=== PATIENT | female | born 1960 | race Caucasian/White ===

== ENCOUNTER 2021-11-03 14:58 | Outpatient (CLI) | payer OTHER, SELFPAY ==
--- NOTE | 2021-11-03 15:05 | MM_ITS ---
WS: [id number] BILATERAL 3D TOMOSYNTHESIS DIGITAL SCREENING MAMMOGRAPHY WITH CAD CLINICAL INFORMATION: SCREENING HISTORY: Screening mammogram. No current complaints. COMPARISON: None. TECHNIQUE: Bilateral CC and MLO views. FINDINGS: The breasts are composed of heterogeneous fibroglandular density tissue, which can limit the detectio n of small underlying mass lesions. No suspicious mass, asymmetry, calcifications, or architectural d istortion. No evidence of malignancy. MM/[place] [id number] IMPRESSION: BI-RADS: 1-Negative FOLLOW UP: 1 Year Follow-up Recommend return to annual screening mammography.
== END 2021-11-03 14:59 | disposition home or self-care (01) ==
PROVIDERS: PCP Nurse Practitioner Family; Visit Provider Nurse Practitioner Family
DX: Z12.31 Encounter for screening mammogram for malignant neoplasm of breast (principal)
CPT/HCPCS: 77063; 77067

== ENCOUNTER 2021-11-10 13:35 | Outpatient (CLI) | payer OTHER, SELFPAY ==
--- NOTE | 2021-11-10 14:06 | PFTS_ITS ---
Date of Study:11/10/21 Date of Dictation: MECHANICS: Forced vital capacity (FVC) is normal. Forced expiratory volume in one second (FEV1) is reduced. FEV1/FVC is reduced. FLOW VOLUME LOOP: Reduced airflow at all lung volumes with significant scooping. LUNG VOLUMES: Not measured DIFFUSING CAPACITY FOR CARBON MONOXIDE: Not measured. INTERPRETATION: The postbronchodilator spirometry is consistent with moderate airflow obstruction. There is no significant postbronchodilator response. MTDD
== END 2021-11-10 13:36 | disposition home or self-care (01) ==
LOC: RT 13:35
PROVIDERS: PCP Nurse Practitioner Family; Visit Provider Nurse Practitioner Family
DX: F17.200 Nicotine dependence, unspecified, uncomplicated (principal); R06.2 Wheezing; R05.9 Cough, unspecified
CPT/HCPCS: 94060; J7611

== ENCOUNTER 2022-01-21 16:34 | Outpatient (CLI) | payer OTHER, SELFPAY ==
--- NOTE | 2022-01-21 17:01 | CT_ITS ---
WS: [id number] LDCT LUNG CANCER SCREENING HISTORY: HX OF TOBACCO USE TECHNIQUE: Axial imaging performed from the apices to 1 cm below the costophrenic angles. Coronal and sagittal reformats are submitted with axial MIP series. All CT scans at [facility] use at least one of these dose optimization techniques: automated exposure control; mA and/or kV adjustment per patient size (includes targeted exams where dose is matched to clinical indication); or iterativ e reconstruction. DLP: 78.12 mGy.cm DIvol: Mean CTDIvol: 1.60 (mGy) COMPARISON: None available. Diagnostic quality: Satisfactory Lung Nodules: Lobulated solid nodule is pleural-based LEFT lobe along the superior major fissure. Thi s nodule measures 11 mm in diameter and may extend into both the upper and lower lobes. No additional mass identified. No pneumonia. Lungs: Mild pulmonary hyperinflation. Dependent changes posteriorly lungs. Heart: Normal size. No pericardial effusion. Other findings: No adenopathy. Normal size aorta and pulmonary artery. Mild thickening of the LEFT ad renal gland. Similar to 2015. CT/CT lung screening [id number] IMPRESSION: LUNG-RADS: 4A-Probably Suspicious FOLLOW UP: 3 Month LDCT OTHER FINDINGS (S MODIFIER): None.
== END 2022-01-21 16:35 | disposition home or self-care (01) ==
LOC: RAD 16:34
PROVIDERS: PCP Nurse Practitioner Family; Visit Provider Nurse Practitioner Family
DX: Z12.2 Encounter for screening for malignant neoplasm of respiratory organs (principal); Z87.891 Personal history of nicotine dependence
CPT/HCPCS: 71271

== ENCOUNTER 2022-05-06 15:15 | Outpatient (CLI) | payer OTHER, SELFPAY ==
--- NOTE | 2022-05-06 16:21 | CT_ITS ---
WS: [id number] CT CHEST WITHOUT INTRAVENOUS CONTRAST HISTORY: 3 MONTH F/U FROM LDCT TECHNIQUE: Contiguous 5 mm axial imaging performed on the thorax. Coronal and sagittal reformats are submitted. All CT scans at [facility] use at least one of these dose optimization techniques: automated exposure control; mA and/or kV adjustment per patient size (includes targeted exams where dose is matched to clinical indication); or iterative reconstruction. CONTRAST: None DLP: 238.07 mGy.cm COMPARISON: 01/21/2022 Lungs and central airway: Moderate pulmonary hyperexpansion from emphysema. Lobulated, noncalcified m ass along the superior LEFT major fissure is reidentified. No interval change or progression since th e prior study. Nodule abuts the pleura measuring 10 x 9 mm. There is mild extension into the superior and inferior lung. No additional masses or pneumonia. Pleura: No additional abnormality. Heart and pericardium: Normal size heart with no pericardial effusion. Mediastinum and shar: No mediastinum or hilar adenopathy. Vessels: Normal size aortic and pulmonary artery. No coronary artery calcifications. Chest wall and lower neck: No soft tissue masses. Upper abdomen: Mild thickening of the LEFT adrenal gland is reidentified without change. Osseous structures: Mild straightening of the normal thoracic kyphosis. Slight anterior wedging of L1 . CT/CT chest wo con [id number] IMPRESSION: 1. No interval change in the lobulated nodule measuring 10 x 9 mm in the super ior major fissure. Recommend continued follow-up. Follow-up chest CT in 6 month s without contrast is recommended. 2. Chronic emphysema. No adenopathy.
== END 2022-05-06 15:16 | disposition home or self-care (01) ==
LOC: RAD 15:15
PROVIDERS: PCP Nurse Practitioner Family; Visit Provider Family Medicine
DX: R91.1 Solitary pulmonary nodule (principal); J43.9 Emphysema, unspecified
CPT/HCPCS: 71250

== ENCOUNTER → 2022-06-11 08:56 | Outpatient (BNVA) | payer OTHER, SELFPAY | PROVIDERS: PCP Nurse Practitioner Family; Visit Provider Podiatrist Foot & Ankle Surgery | DX: M72.2 Plantar fascial fibromatosis (principal); M24.572 Contracture, left ankle | CPT/HCPCS: 73630 ==

== ENCOUNTER 2022-06-30 15:26 | Outpatient (CLI) | payer OTHER, SELFPAY | END 2022-06-30 15:27 | disposition home or self-care (01) | LOC: SPT 15:27 | PROVIDERS: PCP Nurse Practitioner Family; Visit Provider Podiatrist Foot & Ankle Surgery | DX: Z46.89 Encounter for fitting and adjustment of other specified devices (principal); M79.672 Pain in left foot | CPT/HCPCS: 97760; L4397 ==

== ENCOUNTER 2022-08-03 14:21 | Outpatient (RCR) | payer OTHER, SELFPAY | END 2022-08-25 23:59 | disposition home or self-care (01) | LOC: SPT 14:21 | PROVIDERS: PCP Nurse Practitioner Family; Visit Provider Podiatrist Foot & Ankle Surgery | DX: M76.62 Achilles tendinitis, left leg (principal) | CPT/HCPCS: 97033; 97110; 97140; 97161 ==

== ENCOUNTER 2022-09-06 07:54 | Outpatient (CLI) | payer OTHER, SELFPAY ==
--- NOTE | 2022-09-06 08:00 | MR_ITS ---
WS: [email or web address] EXAMINATION: MR ankle LT wo con* [id number] ORDER DATE: 09/06/2022 8:01 AM COMPARISON: None. HISTORY: Left ankle pain CONTRAST: None. TECHNIQUE: Axial proton density fat sat, axial T1, sagittal proton density, sagittal STIR, coronal T2 fat sat, and coronal T1 sequences performed. After contrast, axial T1 fat sat, coronal T1 fat sat, and sagittal T1 fat sat were performed. FINDINGS: Distal Achilles is normal in appearance. Normal ankle mortise. Normal medial and lateral malleolus. T alar dome is normal. Normal peroneal longus and brevis. Normal extensor and flexor compartment tendon s. Tiny joint effusion. Normal talocalcaneal articulation. Normal bone marrow signal in the cuboid. S mall amount of degenerative edema in the navicular. ATF is somewhat diminutive likely due to chronic tear. Increased signal with thickening involving the proximal plantar fascia at the calcaneal origin. Assoc iated soft tissue edema. Thickening measures approximately 7.5 mm compatible with plantar fasciitis. Soft tissue edema in the underlying calcaneus. Associated small intrasubstance tear involving the jesi tral band origin measuring 6 mm. Edema in the underlying calcaneus. MR/MR ankle LT wo con* [id number] IMPRESSION: 1. Small intrasubstance plantar fascial tear at the central band origin measur ing 6 mm with associated plantar fasciitis. Thickening of the plantar fascia me asuring 7.5 mm with surrounding edema. 2. Associated edema in the underlying calcaneus. 3. ATF is somewhat diminutive likely due to chronic tear. 4. No other acute findings.
== END 2022-09-06 07:55 | disposition home or self-care (01) ==
LOC: RAD 07:55
PROVIDERS: PCP Nurse Practitioner Family; Visit Provider Podiatrist Foot & Ankle Surgery
DX: M76.62 Achilles tendinitis, left leg (principal); M76.822 Posterior tibial tendinitis, left leg; M72.2 Plantar fascial fibromatosis
CPT/HCPCS: 73721

== ENCOUNTER 2022-09-07 11:00 | Outpatient (CLI) | payer OTHER, SELFPAY | END 2022-09-07 11:01 | disposition home or self-care (01) | LOC: SPT 11:00 | PROVIDERS: PCP Nurse Practitioner Family; Visit Provider Podiatrist Foot & Ankle Surgery | DX: Z46.89 Encounter for fitting and adjustment of other specified devices (principal); M79.672 Pain in left foot | CPT/HCPCS: 97760; L4361 ==

== ENCOUNTER 2022-11-24 07:52 | Outpatient (CLI) | payer OTHER, SELFPAY ==
--- NOTE | 2022-11-24 07:58 | CT_ITS ---
WS: [id number] CT chest wo con [id number] HISTORY: LUNG NODULE TECHNIQUE: Axial imaging performed through the thorax. Coronal and sagittal reformats are submitted. All CT scans at [facility] use at least one of these dose optimization techniques: automated exposure control; mA and/or kV adjustment per patient size (includes targeted exams where dose is mat ched to clinical indication); or iterative reconstruction. CONTRAST: None DLP: 180.42 mGy.cm COMPARISON: 05/06/2022 and 05/24/2021 Lungs and central airway: Hyperinflated lungs with emphysema. Reidentified is a lobulated 8 x 9 mm no dule associated with the superior LEFT major fissure. Pleural-based nodule. 3 mm nodule in the RIGHT middle lobe was not identified on prior exams. This may be due to volume averaging and the small size of this nodule. Additional 3 mm nodule LEFT lower lobe is new. No pleural effusion. Heart and pericardium: Normal size heart with no pericardial effusion. Mediastinum and shar: No mediastinum or hilar adenopathy. Vessels: Normal size aortic and pulmonary artery. No coronary artery calcifications. Chest wall and lower neck: No soft tissue masses. Upper abdomen: Normal. Osseous structures: Mild anterior wedging of L1. IMPRESSION: 1. No interval increase in size of the lobulated 8 x 9 mm nodule in the superior LEFT major fissure. 2. New nodules x 2 are identified. Both of these nodules measure approximately 3 mm. 1 of these nodul es in the RIGHT middle lobe and the other is in the LEFT lower lobe. Recommend follow-up chest CT in 6 months. 3. Chronic emphysema.
== END 2022-11-24 07:53 | disposition home or self-care (01) ==
LOC: RAD 07:52
PROVIDERS: PCP Nurse Practitioner Family; Visit Provider Nurse Practitioner Family
DX: R91.8 Other nonspecific abnormal finding of lung field (principal); J43.9 Emphysema, unspecified
CPT/HCPCS: 71250

== ENCOUNTER 2023-01-26 14:53 | Outpatient (CLI) | payer OTHER, SELFPAY ==
--- NOTE | 2023-01-26 15:10 | XRR_ITS ---
PROCEDURE INFORMATION: Exam: XR Right Ankle Exam date and time: 01/26/2023 3:17 PM Age: 62 years old Clinical indication: Injury or trauma; Other: Sprain of right ankle; Sprain or strain; Additional info: Sprain of unspecified ligament of right ankle TECHNIQUE: Imaging protocol: Radiologic exam of the right ankle. Views: 3 or more views. COMPARISON: No relevant prior studies available. FINDINGS: Bones/joints: Mild tibiotalar joint space narrowing. Small ankle joint effusion. No visible fracture. Calcaneal enthesopathy. Soft tissues: Normal. XR/XR ankle RT min 3V* [id number] IMPRESSION: Small ankle joint effusion. No acute osseous injury.
== END 2023-01-26 14:54 | disposition home or self-care (01) ==
PROVIDERS: PCP Nurse Practitioner Family; Visit Provider Nurse Practitioner Family
DX: S93.401A Sprain of unspecified ligament of right ankle, initial encounter (principal); X58.XXXA Exposure to other specified factors, initial encounter; M25.471 Effusion, right ankle
CPT/HCPCS: 73610

== ENCOUNTER → 2023-02-08 09:53 | Outpatient (BNVA) | payer OTHER, SELFPAY | PROVIDERS: PCP Nurse Practitioner Family; Visit Provider Podiatrist Foot & Ankle Surgery | DX: M72.2 Plantar fascial fibromatosis; M62.9 Disorder of muscle, unspecified | CPT/HCPCS: 73630 ==

== ENCOUNTER 2023-03-08 08:27 | Outpatient (CLI) | payer OTHER, SELFPAY ==
--- NOTE | 2023-03-08 08:45 | MR_ITS ---
WS: [email or web address] MRI RIGHT FOOT WITHOUT CONTRAST. COMPARISON: RIGHT foot radiograph 02/08/2023 Multiplanar, multisequence imaging is performed without contrast. There is marrow edema involving a portion of the cuboid. This is predominantly along the lateral and distal aspect of the cuboid. No definite fracture is identified. The adjacent peroneal tendons are in tact. The peroneus brevis tendon is more difficult to see but the longus is normal course and caliber . No increased fluid within the tendon sheath. There is edema in the soft tissues and cortical irregu larity and narrowing of the articulation between the cuboid and the metatarsals. No additional marrow signal abnormalities. Calcaneus is normal. Normal Achilles tendon. There is a small amount of increased fluid within the very distal tendon sheath of the flexor halluci s longus. There is no tear of the tendon. Extensor tendons are normal. Deltoid ligament and the anterior talofibular ligaments are normal. No osteochondral lesions. IMPRESSION: 1. Marrow edema from the trauma involving a moderate portion of the cuboid. No fracture is identified but there is surface irregularity along the most lateral portion of the cuboid. Additional narrowing of the cuboid articulation with the metatarsals. 2. The peroneal tendons are normal. No tear.
== END 2023-03-08 08:28 | disposition home or self-care (01) ==
LOC: RAD 08:28
PROVIDERS: PCP Nurse Practitioner Family; Visit Provider Podiatrist Foot & Ankle Surgery
DX: S99.821A Other specified injuries of right foot, initial encounter (principal); X58.XXXA Exposure to other specified factors, initial encounter; M25.571 Pain in right ankle and joints of right foot; R53.1 Weakness; R60.0 Localized edema
CPT/HCPCS: 73721

== ENCOUNTER 2023-07-19 08:47 | Outpatient (CLI) | payer OTHER, SELFPAY ==
--- NOTE | 2023-07-19 08:51 | CT_ITS ---
WS: [email or web address] CT chest w con* [id number] HISTORY: LUNG NODULE TECHNIQUE: Axial imaging performed through the thorax. Coronal and sagittal reformats are submitted. All CT scans at [facility] use at least one of these dose optimization techniques: automated exposure control; mA and/or kV adjustment per patient size (includes targeted exams where dose is mat ched to clinical indication); or iterative reconstruction. CONTRAST: Omnipaque 350; 100 mL IV. DLP: 232.72 mGy.cm COMPARISON: 11/24/2022, 01/21/2022 Lungs and central airway: Pleural-based nodule associated with the LEFT superior major fissure is mitch dentified. This is a lobulated nodule with a maximum diameter of 10 mm. Not increasing in size since 01/21/2022. 3 mm nodule in the RIGHT middle lobe is identified today. 3 mm nodule in the LEFT lower l obe is also not identified. No new mass or pulmonary nodule. Pleura: Normal. No pleural effusion. Heart and pericardium: Normal size heart with no pericardial effusion. Mediastinum and shar: No mediastinum or hilar adenopathy. Vessels: Normal size aortic and pulmonary artery. No coronary artery calcifications. Chest wall and lower neck: No soft tissue masses. Upper abdomen: Small hiatal hernia. LEFT adrenal nodularity is unchanged. Osseous structures: Chronic L1 compression fracture. IMPRESSION: 1. Pleural-based nodule along the superior LEFT major fissure is unchanged at 10 mm. No change since 01/21/2022. Recommend return to lung screening CT evaluation. 2. The additional micronodules described in the RIGHT middle and LEFT lower lobes are not identified . No new mass or nodule.
[2023-07-19 09:25] LABS: Blood Urea Nitrogen 8 mg/dL (8-23); Glomerular Filtration Rate 100.6 mL/min (90-130)
[2023-07-19] MEDS: iohexol 350 mg/mL 500 mL Btl (per mL) IV (09:29)
== END 2023-07-19 08:48 | disposition home or self-care (01) ==
LOC: RAD 08:48
PROVIDERS: PCP Nurse Practitioner Family; Visit Provider Nurse Practitioner Family
DX: R91.8 Other nonspecific abnormal finding of lung field (principal)
CPT/HCPCS: 71260; 82565; 84520; Q9967

== ENCOUNTER 2023-08-08 09:26 | Outpatient (CLI) | payer OTHER, SELFPAY ==
--- NOTE | 2023-08-08 09:33 | XRR_ITS ---
PROCEDURE INFORMATION: Exam: XR Left Wrist Exam date and time: 08/08/2023 10:03 AM Age: 62 years old Clinical indication: Injury or trauma; Fall; Blunt trauma (contusions or hematomas); Wrist; Left; Injury date: 08/05/23; Additional info: L wrist pain TECHNIQUE: Imaging protocol: Radiologic exam of the left wrist. Views: 3 or more views. COMPARISON: No relevant prior studies available. FINDINGS: Bones/joints: No acute osseous, joint, or soft tissue abnormality.. Soft tissues: Normal. XR/XR wrist LT min 3V* [id number] IMPRESSION: No acute findings.
== END 2023-08-08 09:27 | disposition home or self-care (01) ==
LOC: RAD 09:28
PROVIDERS: PCP Nurse Practitioner Family; Visit Provider Nurse Practitioner Family
DX: M25.532 Pain in left wrist (principal)
CPT/HCPCS: 73110

== ENCOUNTER → 2023-08-17 09:16 | Outpatient (BNVA) | payer OTHER, SELFPAY | PROVIDERS: PCP Nurse Practitioner Family; Visit Provider Specialist | DX: S52.552A Other extraarticular fracture of lower end of left radius, initial encounter for closed fracture; W18.09XA Striking against other object with subsequent fall, initial encounter | CPT/HCPCS: 73110 ==

== ENCOUNTER 2023-08-17 11:07 | Outpatient (CLI) | payer OTHER, SELFPAY | END 2023-08-17 11:08 | disposition home or self-care (01) | LOC: SPT 11:09 | PROVIDERS: PCP Nurse Practitioner Family; Visit Provider Specialist | DX: Z46.89 Encounter for fitting and adjustment of other specified devices (principal); S69.92XD Unspecified injury of left wrist, hand and finger(s), subsequent encounter; X58.XXXD Exposure to other specified factors, subsequent encounter | CPT/HCPCS: 97760; L3982 ==

== ENCOUNTER → 2023-09-07 09:37 | Outpatient (BNVA) | payer OTHER, SELFPAY | PROVIDERS: PCP Nurse Practitioner Family; Visit Provider Specialist | DX: S52.552D Other extraarticular fracture of lower end of left radius, subsequent encounter for closed fracture with routine healing (principal); X58.XXXD Exposure to other specified factors, subsequent encounter | CPT/HCPCS: 73110 ==

== ENCOUNTER → 2023-10-05 13:58 | Outpatient (BNVA) | payer OTHER, SELFPAY | PROVIDERS: PCP Nurse Practitioner Family; Visit Provider Specialist | DX: S52.552D Other extraarticular fracture of lower end of left radius, subsequent encounter for closed fracture with routine healing (principal); X58.XXXD Exposure to other specified factors, subsequent encounter | CPT/HCPCS: 73110 ==

== ENCOUNTER 2023-10-13 10:51 | Outpatient (RCR) | payer OTHER, SELFPAY | END 2023-10-26 23:59 | disposition home or self-care (01) | LOC: SOT 10:51 | PROVIDERS: Visit Provider Specialist | DX: S52.502D Unspecified fracture of the lower end of left radius, subsequent encounter for closed fracture with routine healing (principal); X58.XXXD Exposure to other specified factors, subsequent encounter | CPT/HCPCS: 97022; 97110; 97140; 97165; 97530 ==

== ENCOUNTER 2023-10-27 06:00 | Outpatient (RCR) | payer OTHER, SELFPAY | END 2023-11-26 18:00 | disposition home or self-care (01) | LOC: SOT 06:00 | PROVIDERS: Visit Provider Specialist | DX: S52.502D Unspecified fracture of the lower end of left radius, subsequent encounter for closed fracture with routine healing (principal); X58.XXXD Exposure to other specified factors, subsequent encounter | CPT/HCPCS: 97022; 97110; 97140 ==